=== PATIENT | male | born 1985 | race Two or more races ===

== ENCOUNTER 2021-09-18 11:56 | Outpatient (CLI) | payer BC, OTHER ==
[2021-09-18 13:20] LABS: *BILIRUBIN,URIN NEGATIVE (NEGATIVE); *CLARITY,URINE CLEAR (CLEAR); *COLOR,URINE LIGHT YELLOW (YELLOW); *KETONES,URINE NEGATIVE (NEGATIVE); *UROBILINOGEN,URINE 0.2 E.U./dl (NORMAL); LEUKOCYTE ESTERASE ,URINE NEGATIVE (NEGATIVE); NITRITE, URINE NEGATIVE (NEGATIVE); UGLUCOSE NEGATIVE (NEGATIVE)
[2021-09-18 13:22] LABS: *BLOOD, URINE TRACE (NEGATIVE)
[2021-09-18 13:42] LABS: RBC,URINE 0-3 /HPF (0-3)
[2021-09-18 13:43] LABS: BACTERIA,URINE NONE SEEN /HPF (NONE SEEN); SQUAMOUS EPITHELIAL CELL,UR FEW /HPF (NONE SEEN); WBC,URINE 0-3 /HPF (0-3)
== END 2021-09-18 23:59 | disposition home or self-care (01) ==
LOC: LAB 11:56
PROVIDERS: ATTEND Internal Medicine
DX: R31.9 Hematuria, unspecified (principal)